=== PATIENT | male | born 1985 | race Caucasian/White ===

== ENCOUNTER 2017-03-09 01:26 | Observation (INO) | payer MEDICARE ==
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
[2017-03-09] MEDS ORDERED: BACIGUENT PACKET TP ONE (02:08)
[2017-03-09] MEDS ORDERED: XYLOCAINE 1% HCL 20 ML MDV IJ ONE (02:08)
[2017-03-09] MEDS ORDERED: Adacel Vial IM ONE ×2 (02:08→02:21)
[2017-03-09] MEDS ORDERED: BACIGUENT PACKET ONE (02:09)
[2017-03-09 02:21] LABS: BASOPHIL % 0.2 % (0.0-0.4); Eosinophil % 1.5 % (0.00-5.0); Granulocytes % 73.1 % (36.0-66.0); Lymphocytes % 17.1 % (24.0-44.0); Mean Cell Volume 101.1 fl (78-100); Mean Platelet Volume 10.2 fl (6-9.5); Monocytes % 8.1 % (0.0-12.0); Platelet Count 173 K/mm3 (150-450); Red Blood Count 5.39 M/mm3 (4.1-5.6); Red Cell Distribution Width 13.7 % (11.5-14.0); White Blood Count 9.1 K/mm3 (4.0-10.5)
[2017-03-09 02:22] LABS: Mean Corpuscular Hemoglobin 33.5 pg (26-32)
[2017-03-09 02:48] LABS: ALBUMIN 3.6 g/dL (3.4-5.0); ALKALINE PHOSPHATASE 92 U/L (46-116); ANION GAP 13.9 MEQ/L (5-15); BLOOD UREA NITROGEN 3 mg/dL (9-20); CHLORIDE 104 mEq/L (98-107); Carbon Dioxide 27.4 mEq/L (21-32); ETHYL ALCOHOL 0.163 % (0.00-0.01); Glucose 103 MG/DL (70-110); Potassium 3.6 mEq/L (3.5-5.1); SGOT/AST 36 U/L (15-37); SGPT/ALT 50 U/L (12-78); SODIUM 142 mEq/L (136-145); Total Protein 7.5 gm/dL (6.4-8.2)
[2017-03-09 02:49] LABS: ACETAMINOPHEN < 2.0 ug/ml (10-30)
[2017-03-09] MEDS ORDERED: Ativan 2 MG/1 ML VIAL IV ONE (02:55)
[2017-03-09] MEDS ORDERED: Ativan 2 MG/1 ML VIAL ONE (03:00)
[2017-03-09] MEDS ORDERED: Senokot-S Tablet PO PRN (03:01)
[2017-03-09] MEDS ORDERED: TYLENOL 325 MG PO PRN (03:01)
[2017-03-09] MEDS ORDERED: MAALOX ES 30 ML UNIT DOSE PO PRN (03:01)
[2017-03-09] MEDS ORDERED: MILK OF MAGNESIA 30 ML PO PRN (03:01)
[2017-03-09] MEDS ORDERED: Sodium Chloride 0.9% 1000 ML 1,000 ML IV SCH (08:15)
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
[2017-03-09] MEDS ORDERED: Klor Con 10 MEQ PO SCH (10:00)
[2017-03-09] MEDS ORDERED: Protonix 40MG Tablet PO SCH (10:00)
[2017-03-09] MEDS ORDERED: NON-FORMULARY ITEM (Potassium Chloride [K-Dur] 20 MEQ) PO SCH (10:00)
[2017-03-09] MEDS ORDERED: Zestril 20 MG PO SCH (10:00)
--- NOTE | 2017-03-09 11:22 | XRAY ---
Exam: AP upright portable chest film from 0225 hours on 03/09/2017. Comparison: AP upright portable chest film from 11/17/2014. Indication: Chest pain. Findings: The patient is rotated slightly toward the right. The transverse heart size appears within normal limits. The philip and mediastinal structures appear unremarkable. Lung volumes are mildly decreased. I believe there is a tiny calcified granuloma versus vessel on end at the right lung base. A tiny transverse strand of plate atelectasis is seen at the right lung base. No air space infiltrates, vascular congestion, pneumothorax, or pleural fluid is seen. No acute osseous process is seen. Impression: 1. Lung volumes are relatively low representing no significant change. I see no air space infiltrates or other acute cardiopulmonary process. There is a suggestion of minimal, transversely oriented, plate atelectasis at the right lung base.
[2017-03-09 11:55] LABS: ETHYL ALCOHOL < 0.010 % (0.00-0.01)
[2017-03-09 12:00] LABS: TROPONIN < 0.017 ng/ml (0.000-0.056)
[2017-03-09 12:21] VITALS: PULSE 91
[2017-03-09 12:22] VITALS: BP 115/82; O2SAT 97
--- NOTE | 2017-03-09 13:25 | PCM.DCORD ---
- Discharge Discharge Date: 03/09/17 Disposition: Home, Self-Care Condition: Fair Prescriptions: Continue PANTOPRAZOLE 40 mg Tablet [Protonix 40MG Tablet] 40 mg PO QAM Potassium Chloride 10 Meq Tab* [Klor Con 10 MEQ] 10 meq PO BID Lisinopril 40 mg PO DAILY Follow up with: GUILHERME KIM [Primary Care Provider] -
== END 2017-03-09 14:00 | disposition home or self-care (01) ==
LOC: ED 01:26 → ICU 03:39
PROVIDERS: ADMIT Family Medicine; ATTEND Family Medicine
DX: T14.91XA Suicide attempt, initial encounter (principal); X78.9XXA Intentional self-harm by unspecified sharp object, initial encounter; F41.9 Anxiety disorder, unspecified; F10.920 Alcohol use, unspecified with intoxication, uncomplicated; R07.9 Chest pain, unspecified; I10 Essential (primary) hypertension; Z23 Encounter for immunization; A35 Other tetanus; Z79.899 Other long term (current) drug therapy
CPT/HCPCS: 96372; 99285; 96360; 93005 ×2; 36415; 83721; 80307 ×2; 85025; 80053; 80061; 84484; 71010; G0481 ×2; 90471; 90715; 90791; G0378; J2060; Q3014; A9270-GY

== ENCOUNTER 2019-01-31 02:06 | Emergency (ER) | payer MEDICARE ==
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
[2019-01-31 03:02] VITALS: BP 95/61; PULSE 82; O2SAT 96
[2019-01-31 03:08] LABS: Absolute Neutrophil Ct (ANC) 4.95 (1.4-6.9); BASOPHIL % 0.2 % (0.0-0.4); Basophil (Absolute #) 0.02 (0-0.4); Eosinophil % 3.4 % (0.00-5.0); Hematocrit 45.4 % (42-50); Hemoglobin 15.3 gm/dl (12.5-18.0); Lymphocyte (Absolute #) 2.94 (1.0-4.6); Lymphocytes % 33.6 % (24.0-44.0); Mean Cell Volume 98.7 fl (78-100); Mean Corpuscular Hemoglobin 33.3 pg (26-32); Mean Corpuscular Hgb Concent. 33.7 g/dl (32-36); Mean Platelet Volume 10.1 fl (6-9.5); Monocyte (Absolute #) 0.54 (0.0-1.3); Monocytes % 6.2 % (0.0-12.0); Neutrophil % 56.6 % (36.0-66.0); Platelet Count 214 K/mm3 (150-450); Red Cell Distribution Width 12.7 % (11.5-14.0); White Blood Count 8.8 K/mm3 (4.0-10.5)
[2019-01-31 03:16] LABS: Appearance CLEAR (CLEAR); Bilirubin NEGATIVE (NEGATIVE); Blood NEGATIVE Ery/ul (0-5); Glucose NEGATIVE (NEGATIVE); Ketones NEGATIVE (NEGATIVE); Leukocyte Esterase NEGATIVE (NEGATIVE); Mucus SLIGHT /HPF (NEGATIVE); Nitrite NEGATIVE (NEGATIVE); Protein,Urine Dip NEGATIVE (Negative); Specific Gravity 1.001 (1.005-1.025); Urobilinogen NEGATIVE mg/dL (0-1)
[2019-01-31 03:24] LABS: ALBUMIN 4.7 g/dL (3.5-5.0); ALKALINE PHOSPHATASE 80 U/L (38-126); BLOOD UREA NITROGEN 6 mg/dL (9-20); CHLORIDE 104 mmol/L (98-107); Calcium 9.1 mg/dL (8.4-10.2); Carbon Dioxide 26 mmol/L (22-30); Creatinine 1 0.88 mg/dL (0.66-1.25); ETHYL ALCOHOL 213 mg/dL (0-10); Glucose 81 mg/dL (74-106); Potassium 3.8 mmol/L (3.5-5.1); SGOT/AST 35 U/L (17-59); SGPT/ALT 23 U/L (0-50); SODIUM 144 mmol/L (137-145); Total Protein 8.3 g/dL (6.3-8.2)
[2019-01-31 03:26] LABS: ACETAMINOPHEN < 10 ug/ml (10-30); SALICYLATE < 1.0 mg/dL (2-20)
[2019-01-31 06:35] LABS: Amphetamine,Urine NEGATIVE (NEGATIVE); Barbiturate,Urine NEGATIVE (NEGATIVE); Benzodiazepine,Urine NEGATIVE (NEGATIVE); Cocaine,Urine NEGATIVE (NEGATIVE); Methadone,Urine NEGATIVE (NEGATIVE); Opiate,Urine NEGATIVE (NEGATIVE); PCP,Urine NEGATIVE (NEGATIVE); THC,Urine NEGATIVE (NEGATIVE)
== END 2019-01-31 03:20 | disposition left against medical advice (07) ==
LOC: ED 02:06
DX: F10.220 Alcohol dependence with intoxication, uncomplicated (principal); Z79.899 Other long term (current) drug therapy
CPT/HCPCS: 36000; 36415; 80053; 80307; 81001; 84484; 85025; 93005; 99284; G0480; G0481

== ENCOUNTER 2023-03-15 20:32 | Emergency (ER) | payer MEDICARE ==
[2023-03-15 21:05] VITALS: TEMP 99.5; O2SAT 98
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
[2023-03-15] MEDS ORDERED: TYLENOL 325 MG PO ONE (21:59)
[2023-03-15] MEDS ORDERED: Reglan 10 MG/2 ML IV ONE (21:59)
[2023-03-15] MEDS ORDERED: BENADRYL 50 MG/ML IV ONE (22:00)
[2023-03-15] MEDS ORDERED: Sodium Chloride 0.9% 1000 ML 1,000 ML IV SCH (22:00)
[2023-03-15 22:13] LABS: Absolute Neutrophil Ct (ANC) 3.27 x10^3/uL (1.4-6.9); BASOPHIL % 0.6 % (0.0-0.4); Basophil (Absolute #) 0.03 x10^3/uL (0-0.4); Eosinophil % 0.8 % (0.00-5.0); Eosinophil (Absolute #) 0.04 x10^3/uL (0-0.5); Hemoglobin 12.7 g/dL (12.5-18.0); IMMATURE GRAN # 0.01 x10^3u/L (0.00-0.03); IMMATURE GRAN % 0.2 % (0.00-0.4); Lymphocyte (Absolute #) 1.06 x10^3/uL (1.0-4.6); Lymphocytes % 21.9 % (24.0-44.0); Mean Cell Volume 97.7 fL (78-100); Mean Corpuscular Hemoglobin 32.6 pg (26-32); Mean Corpuscular Hgb Concent. 33.4 g/dL (32-36); Mean Platelet Volume 10.1 fL (7.5-11.0); Monocyte (Absolute #) 0.42 x10^3/uL (0.0-1.3); Monocytes % 8.7 % (0.0-12.0); Neutrophil % 67.8 % (36.0-66.0); Platelet Count 179 x10^3/uL (150-450); Red Blood Count 3.89 x10^6/uL (4.1-5.6); Red Cell Distribution Width 12.1 % (11.5-14.0); White Blood Count 4.8 x10^3/uL (4.0-10.5)
[2023-03-15 22:15] LABS: INFLUENZA A NEGATIVE (NEGATIVE); INFLUENZA B NEGATIVE (NEGATIVE); RESPIRATORY SYNCTIAL VIRUS NEGATIVE (NEGATIVE); SARS-CoV-2 Xpert Express NEGATIVE (NEGATIVE)
[2023-03-15 22:27] LABS: ALBUMIN 4.5 g/dL (3.5-5.0); ANION GAP 12.9 MEQ/L (5-15); BILIRUBIN,TOTAL 0.8 mg/dL (0.2-1.3); Calcium 9.2 mg/dL (8.4-10.2); Creatinine 1 0.78 mg/dL (0.66-1.25); EST GLOMERULAR FILTRATION RATE 117.1 ML/MIN; Potassium 3.6 mmol/L (3.5-5.1); Total Protein 7.7 g/dL (6.3-8.2)
[2023-03-15 22:56] LABS: Appearance Clear (Clear); Bacteria None Seen /HPF (None Seen); Bilirubin Negative (Negative); Blood Negative (Negative); Epithelial Cells None Seen /HPF (None Seen); Glucose, Urine Negative (Negative); Hyaline Casts NONE SEEN /LPF (0-2); Ketones Negative (Negative); Leukocyte Esterase Negative (Negative); Nitrite Negative (Negative); Protein,Urine Dip Negative (Negative); RBC 0-2 /HPF (0-5); Specific Gravity <=1.005 (1.005-1.030); Urobilinogen 0.2 mg/dL (0.2); WBC 0-2 /HPF (0-5)
[2023-03-15 23:01] LABS: ADD URINE CULTURE? NO (NO)
[2023-03-15] MEDS ORDERED: TYLENOL 325 MG ONE (23:04)
[2023-03-15] MEDS ORDERED: BENADRYL 50 MG/ML ONE (23:04)
[2023-03-15] MEDS ORDERED: Sodium Chloride 0.9% 1000 ML 1,000 ML ONE (23:05)
[2023-03-15] MEDS ORDERED: Reglan 10 MG/2 ML ONE (23:05)
[2023-03-15 23:07] LABS: Amphetamine,Urine NEGATIVE (NEGATIVE); Barbiturate,Urine NEGATIVE (NEGATIVE); Benzodiazepine,Urine POSITIVE (NEGATIVE); Cocaine,Urine NEGATIVE (NEGATIVE); Methadone,Urine NEGATIVE (NEGATIVE); Opiate,Urine NEGATIVE (NEGATIVE); PCP,Urine NEGATIVE (NEGATIVE); THC,Urine POSITIVE (NEGATIVE)
--- NOTE | 2023-03-15 23:24 | XRAY ---
CLINICAL HISTORY:right side weakness/HTN COMPARISON:None. TECHNIQUE:Axial CT angiography of head was performed with IV contrast administration with sagittal and coronal reconstructions. Non-contrast axial sections CT head were also obtained. FINDINGS: ANGIOGRAPHY The cavernous portions of bilateral internal carotid arteries show normal contrast opacification. The bilateral middle cerebral artery show normal contrast opacification. The anterior and posterior cerebral arteries appear normal in caliber and contrast opacification. The basilar artery appears unremarkable. The visualized intracranial portions of vertebral arteries show normal contrast opacification No evidence of arteriovenous malformation. HEAD The visualized brain parenchyma shows normal appearance. Haley-white matter differentiation is maintained. No midline shifts or deformity. No intracerebral or extra axial hematoma. Normal size and configuration of the cerebral ventricles. Normal CT appearance of the posterior fossa structures namely the cerebellar hemispheres, brainstem and cerebellar peduncles. The IACs are unremarkable. The cerebello-pontine angles are clear. The osseous structures in the skull base are unremarkable. No definite calvarium fractures. The scanned paranasal sinuses are clear. IMPRESSION: 1. Unremarkable CT angiography of head. 2. Early changes of stroke may not be detected on a CT scan. If strong clinical suspicion of stroke then suggest MRI with diffusion-weighted imaging. [facility] ER was called at [phone] at 11:20 PM EST, 03/15/2023 and results were verbally communicated to Bianca. Electronically Signed by: Ranjana Brantley MD. (03/15/2023 22:23:33 RN MATERNAL CHILD)
--- NOTE | 2023-03-15 23:44 | XRAY ---
CLINICAL HISTORY:right side weakness/HTN COMPARISON:None. TECHNIQUE:Multiple CT axial sections of the neck angiography were acquired with intravenous contrast administration. Sagittal and coronal reformatted images were obtained. FINDINGS: There is a normal 3 vessel aortic arch. The carotid arteries are normal in caliber and course without evidence of dissection or significant stenosis. Vertebral arteries are intact. The vertebral basilar arteries are intact. Soft tissue exam of the neck is unremarkable. Multiple prominent cervical lymph nodes. For reference, one of the largest at level 4 measures 0.9 x 0.7 cm on the right and 0.7 x 0.6 cm on the left. There is a small 5 mm retention cyst in the left maxillary sinus. The salivary glands are normal. Thyroid is homogeneous. No acute osseous abnormality of the cervical spine. The visualized sections of the lungs are clear. IMPRESSION: No evidence of hemodynamically significant arterial stenosis or occlusion in bilateral visualized carotid circulation. Electronically Signed by: Ranjana Brantley MD. (03/15/2023 22:42:12 IT SYSTEMS ANALYST CONSULTANT)
[2023-03-15] MEDS ORDERED: TRANDATE 20 MG/4 ML SYRINGE IV ONE (23:48)
[2023-03-16 00:08] VITALS: BP 145/93; PULSE 85; RESP 16
--- NOTE | 2023-03-16 08:38 | XRAY ---
Indication: Cough and weakness. Comparison: Jun 25, 2017 Portable chest again demonstrates normal heart and lungs. Bony thorax intact. No new/acute findings.
== END 2023-03-16 00:23 | disposition left against medical advice (07) ==
LOC: ED 20:32
DX: I10 Essential (primary) hypertension (principal); R42 Dizziness and giddiness; G81.91 Hemiplegia, unspecified affecting right dominant side; R51.9 Headache, unspecified; Z79.899 Other long term (current) drug therapy; Z28.310 Unvaccinated for COVID-19
CPT/HCPCS: 0241U; 36000; 36415; 70496; 70498; 71045; 80053; 80307; 81001; 84484; 85025; 87651; 93005; 96374; 99284; J1200; A9270-GY